=== PATIENT | female | born 2000 | race Caucasian/White ===

== ENCOUNTER 2023-09-12 03:45 | Emergency (ER) | payer BC, SELFPAY ==
[2023-09-12 03:49] VITALS: BP 125/78; PULSE 89; RESP 18; TEMP 36.7; O2SAT 99; BMI 40.3
--- NOTE | 2023-09-12 03:50 | ED.EAR ---
HPI - Ear Problem General Time Seen by Provider: 03:50 Date Seen: 09/12/23 Chief complaint: Ear/Nose/Throat Problem Stated complaint: Foreign object R ear Time Seen by Provider: 09/12/23 03:46 Source: patient, RN notes reviewed and old records reviewed Mode of arrival: ambulatory Limitations: no limitations History of Present Illness HPI Narrative: 22-year-old female who presents today with a foreign body in her right ear. Patient says she has pain and decreased hearing in the right ear. No drainage, no known injury, no known foreign body. Does not use could obstruct Related Data Previous Rx's ?Medication ?Instructions ?Recorded ciprofloxacin 0.3 %-dexamethasone 4 drp otic (ear) BID 7 days #7.5 mL 09/12/23 0.1 % ear drops,suspension Allergies Allergy/AdvReac Type Severity Reaction Status Date / Time No Known Drug Allergies Allergy Verified 09/12/23 03:51 Exam Narrative: Exam Narrative: General: well nourished , NAD Head: Atraumatic and normocephalic ENT: External ears and external nose are normal. Right external auditory canal very tender in erythematous with swelling, tiny amount of wax anteriorly final up against the eardrum, pain with pressure on the tragus. Eyes: Conjunctiva clear, pupils are equal reactive, external ocular motions are intact Neck: Full spontaneous range of motion of the neck Lungs: No respiratory distress Musculoskeletal: No tenderness or deformity Neurologic: No gross focal neurologic deficits Skin: No rashes Psych: Mood and affect are appropriate Const: Vital Signs, click to edit/add: Vital Signs - 24 hr 09/12/23 03:49 Temperature 98.0 F Pulse Rate [Right Pulse Oximeter] 89 Respiratory Rate 18 Blood Pressure [Ri ght Upper Arm] 125/78 Pulse Oximetry 99 Oxygen Delivery Me thod Room Air Course Course ED Course: Patient presents today with pain, decreased hearing, foreign body sensation in the right ear. On exam, she has erythema and edema of the external auditory canal, tenderness with pressure on the tragus, tiny amount of wax against the eardrum. Symptoms are most consistent with otitis externa. Patient will be started on Ciprodex drops. Tylenol ibuprofen as needed for pain. Vital Signs Vital signs: Initial Vital Signs Temperature 98.0 F 09/12/23 03:49 Temperature Source Temporal Artery Scan 09/12/23 03:49 Pulse Rate 89 09/12/23 03:49 Respiratory Rate 18 09/12/23 03:49 Blood Pressure 125/78 09/12/23 03:49 Blood Pressure Mean 93 09/12/23 03:49 Blood Pressure Position Sitting 09/12/23 03:49 Pulse Oximetry 99 09/12/23 03:49 Oxygen Delivery Method Room Air 09/12/23 03:49 Vital Signs Temperature 98.0 F 09/12/23 03:49 Pulse Rate 89 09/12/23 03:49 Respiratory Rate 18 09/12/23 03:49 Blood Pressure 125/78 09/12/23 03:49 Pulse Oximetry 99 09/12/23 03:49 Oxygen Delivery Method Room Air 09/12/23 03:49 Temperature 98.0 F 09/12/23 03:49 Pulse Rate 89 09/12/23 03:49 Respiratory Rate 18 09/12/23 03:49 Blood Pressure 125/78 09/12/23 03:49 Pulse Oximetry 99 09/12/23 03:49 Oxygen Delivery Method Room Air 09/12/23 03:49 Discharge Plan Discharge Clinical Impression: Otitis externa Patient Disposition: Home, Self-Care Condition: Stable Instructions: Swimmer's Ear (ED) Additional Instructions: Warm packs for comfort, Tylenol and ibuprofen as needed for pain. Start Ciprodex drops in the morning as prescribed Activity Level: No Restrictions Discharge Diet: Regular Prescriptions: New ciprofloxacin-dexamethasone 0.3-0.1 % drops,suspension 4 drp otic (ear) BID 7 Days Qty: 7.5 0RF Follow Up/Referrals: Manisha Guerrero MD [Primary Care Provider] - Stand Alone [facility]: [facility] Inst[facility]
[2023-09-12 04:13] VITALS: BP 118/74; PULSE 84; RESP 18; TEMP 36.7; O2SAT 99
[2023-09-12 04:18] VITALS: BP 118/74; PULSE 84; RESP 18; TEMP 36.7
== END 2023-09-12 04:18 | disposition home or self-care (01) ==
LOC: ED 04:06
PROVIDERS: Emergency Provider Family Medicine
DX: H60.61 Unspecified chronic otitis externa, right ear (principal)
CPT/HCPCS: 99283